=== PATIENT | female | born 1970 ===

== ENCOUNTER 2023-09-25 08:15 | Inpatient (IN) | payer OTHER ==
[~2023-09-25] VITALS: Ht 160 cm; Wt 61.2 kg
[2023-09-25 10:17] LABS: HEMATOCRIT 40.7 % (36.0-45.00); HEMOGLOBIN 13.1 g/dL (12.0-15.00); MEAN CELL VOLUME 77.3 fL (80.00-100.00); MEAN CORPUSCULAR HEMOGLOBIN 24.9 pg (27.00-32.0); MEAN CORPUSCULAR HGB CONC 32.1 g/dl (32.0-36.0); PLATELET COUNT 347 K/uL (150-450); RED BLOOD COUNT 5.27 M/uL (4.00-6.00)
[2023-09-25 10:20] LABS: RED CELL DISTRIBUTION WIDTH 25.1 % (11.5-14.5)
[2023-09-25 10:32] LABS: INR 1.03; PARTIAL THROMBOPLASTIN TIME 29.5 SECONDS (22.0-34.0); PROTHROMBIN TIME 10.8 SECONDS (9.0-11.5)
[2023-09-25 10:44] LABS: ALBUMIN 4.1 gm/dL (3.4-5.0); BILIRUBIN TOTAL 0.26 mg/dL (0.3-1.2); CREATININE SERUM 0.85 mg/dL (0.55-1.02); GFR 70.23; GLOBULINA 3.7 G/DL (2.4-3.5); POTASSIUM 4.06 mEq/L (3.5-5.1); TOTAL PROTEIN 7.8 gm/dL (6.4-8.2)
[2023-09-25] MEDS ORDERED: SYNTHROID175 MCG PO (10:52)
[2023-09-25] MEDS ORDERED: GRALISE600 MG PO (10:54)
[2023-09-25] MEDS ORDERED: URSO250 MG PO (10:54)
[2023-09-25] MEDS ORDERED: ARAVA10 MG PO (10:55)
[2023-09-25] MEDS ORDERED: EVOXAC30 MG PO (10:55)
[2023-09-25] MEDS ORDERED: MAGESTROL PO (10:56)
[2023-09-25] MEDS ORDERED: PLAQUENIL PO (10:56)
[2023-09-25 11:56] LABS: PH,URINE 6.5 (5.0-8.0); URINE APPEARANCE Clear; URINE BILIRRUBIN Negative (NEGATIVE); URINE BLOOD Negative; URINE COLOR Yellow; URINE GLUCOSE Negative (NEGATIVE); URINE LEUKOCYTE Negative; URINE NITRATE Negative; URINE PROTEIN Negative (NEGATIVE); URINE UROBILINOGEN 0.2 E.U./dl
[2023-09-25 11:59] LABS: URINE BACTERIA 352.7 uL (0.0-1933); URINE EPITHELIAL CELLS 6.6 uL (0.0-38.8); URINE WBC 6.7 uL (0.0-23.2)
[2023-10-02] MEDS ORDERED: CEFOXITIN SODIUM 2,000 MG VIAL IV ONE ×2 (08:07→11:15)
[2023-10-02] MEDS ORDERED: FAMOTIDINE/PF 20 MG/2 ML VIAL IV SCH (12:10)
[2023-10-02] MEDS ORDERED: MEPERIDINE HCL/PF 50 MG/ML VIAL IM PRN (12:15)
[2023-10-02] MEDS ORDERED: PROMETHAZINE HCL 50 MG/ML AMPUL IM PRN (12:15)
[2023-10-02] MEDS ORDERED: RINGERS SOLUTION,LACTATED 1,000 ML IV SCH (12:15)
[2023-10-02] MEDS ORDERED: KETOROLAC TROMETHAMINE 30 MG VIAL IU PRN (12:15)
[2023-10-02] MEDS ORDERED: SIMETHICONE 125 MG CAPSULE PO SCH (13:00)
[2023-10-02] MEDS ORDERED: PROMETHAZINE HCL 50 MG/ML AMPUL ONE (14:46)
[2023-10-02] MEDS ORDERED: ONDANSETRON HCL 2 MG/ML VIAL ONE (16:05)
[2023-10-02 17:05] LABS: HEMATOCRIT 37.3 % (36.0-45.00); HEMOGLOBIN 12.1 g/dL (12.0-15.00); MEAN CELL VOLUME 78.5 fL (80.00-100.00); MEAN CORPUSCULAR HEMOGLOBIN 25.4 pg (27.00-32.0); MEAN CORPUSCULAR HGB CONC 32.4 g/dl (32.0-36.0); PLATELET COUNT 271 K/uL (150-450); RED BLOOD COUNT 4.75 M/uL (4.00-6.00); RED CELL DISTRIBUTION WIDTH 25.5 % (11.5-14.5)
[2023-10-03] MEDS ORDERED: LEVOTHYROXINE SODIUM 175 MCG TABLET PO SCH (06:00)
[2023-10-03] MEDS ORDERED: ACETAMINOPHEN WITH CODEINE 1 UDTAB TABLET PO PRN (09:00)
[2023-10-03] MEDS ORDERED: FAMOtidine 20 MG TABLET PO SCH (09:00)
[2023-10-03] MEDS ORDERED: HYDROXYCHLOROQ200 MG (09:05)
[2023-10-03] MEDS ORDERED: GABAPENTIN800 M1 (09:05)
[2023-10-03] MEDS ORDERED: MEGESTROL ACETA40 MG (09:06)
[2023-10-03] MEDS ORDERED: ACETAMINOPHEN-1 EAC2 PO (09:12)
[2023-10-03] MEDS ORDERED: FAMOTIDINE20 MG PO (09:12)
== END 2023-10-03 13:13 | disposition home or self-care (01) | DRG 743 ==
LOC: O/R 10-02 05:50 → OB/GYN 10-02 05:50 → SURH 10-02 08:15 → OB/GYN 10-02 13:43
PROVIDERS: ADMIT Obstetrics & Gynecology; ATTEND Obstetrics & Gynecology
PROC: 0JQC0ZZ Repair Pelvic Region Subcutaneous Tissue and Fascia, Open Approach (ICD-10-PCS; 2023-10-02)
PROC: 0USG0ZZ Reposition Vagina, Open Approach (ICD-10-PCS; 2023-10-02)
PROC: 0TJB8ZZ Inspection of Bladder, Via Natural or Artificial Opening Endoscopic (ICD-10-PCS; 2023-10-02)
PROC: 0UT97ZZ Resection of Uterus, Via Natural or Artificial Opening (ICD-10-PCS; principal; 2023-10-02 09:00)
DX: D25.9 Leiomyoma of uterus, unspecified (principal); N72 Inflammatory disease of cervix uteri; N81.11 Cystocele, midline; N81.5 Vaginal enterocele; Z20.822 Contact with and (suspected) exposure to COVID-19